=== PATIENT | male | born 1980 | race Two or more races ===

== ENCOUNTER → 2019-09-28 | Outpatient (CLI) | payer BC | END | disposition home or self-care (01) | LOC: LAB 09:40 → LAB SHORT 09:40 | DX: L08.9 Local infection of the skin and subcutaneous tissue, unspecified (principal) | CPT/HCPCS: 87070; 87077; 87147; 87186; 87205 ==

== ENCOUNTER → 2021-07-06 | Outpatient (CLI) | payer BC | END | disposition home or self-care (01) | LOC: LAB SHORT 09:30 | DX: L03.119 Cellulitis of unspecified part of limb (principal) | CPT/HCPCS: 87070; 87205 ==

== ENCOUNTER 2023-05-26 08:46 | Emergency (ER) | payer BC ==
[~2023-05-26] VITALS: Ht 185.4 cm; Wt 210.9 kg
[2023-05-26 09:35] VITALS: BP 160/100
[2023-05-26] MEDS ORDERED: Bactrim Ds Tab1 EACH PO (09:41)
[2023-05-26] MEDS ORDERED: CEPH500 PO (09:41)
== END 2023-05-26 09:42 | disposition home or self-care (01) ==
LOC: ER 08:46
DX: L03.115 Cellulitis of right lower limb (principal); L03.116 Cellulitis of left lower limb; F17.200 Nicotine dependence, unspecified, uncomplicated
CPT/HCPCS: 99282

== ENCOUNTER → 2024-07-19 | Outpatient (CLI) | payer BC ==
[~2024-07-19] MED LIST: Bactrim Ds Tab1 EACH PO; CEPH500 PO
== END | disposition home or self-care (01) ==
LOC: LAB SHORT 17:40
DX: L08.9 Local infection of the skin and subcutaneous tissue, unspecified (principal); R60.0 Localized edema; Z71.89 Other specified counseling
CPT/HCPCS: 87070; 87205